=== PATIENT | male | born 1970 | race Caucasian/White ===

== ENCOUNTER 2018-07-11 18:06 | Emergency (ER) | payer BC, OTHER ==
--- NOTE | 2018-07-11 21:07 | RAD ---
RADIOGRAPH CHEST 1 VIEW: 07/11/18 HISTORY: 48-year-old male with productive cough, chest congestion, and fever. FINDINGS: There are no air space densities, pulmonary edema, pneumothorax, or cardiomegaly. The lateral costop hrenic angles are sharp. IMPRESSION: No acute cardiopulmonary findings. cliff [] POS: [facility]
== END 2018-07-11 21:22 | disposition home or self-care (01) ==
LOC: ERS 18:06
DX: J20.9 Acute bronchitis, unspecified (principal); F32.9 Major depressive disorder, single episode, unspecified; F17.210 Nicotine dependence, cigarettes, uncomplicated
CPT/HCPCS: 71045

== ENCOUNTER 2018-08-27 17:53 | Emergency (ER) | payer BC ==
--- NOTE | 2018-08-27 20:31 | RAD ---
CHEST TWO VIEWS: History: Chest pain Comparison: 07-11-18 FINDINGS: Lungs are clear. No pneumothorax or effusion. Cardiac silhouette and mediastinal contour is within no rmal limits. IMPRESSION: No acute intrathoracic abnormality. POS: [facility]
== END 2018-08-27 20:20 | disposition home or self-care (01) ==
LOC: ERS 17:53
DX: R05 Cough (principal); I10 Essential (primary) hypertension; F32.9 Major depressive disorder, single episode, unspecified; F17.210 Nicotine dependence, cigarettes, uncomplicated; Z87.01 Personal history of pneumonia (recurrent)
CPT/HCPCS: 71046

== ENCOUNTER 2019-07-23 18:02 | Emergency (ER) | payer BC, SELFPAY ==
--- NOTE | 2019-07-23 19:16 | RAD ---
PA AND LATERAL CHEST: 07/23/19 HISTORY: Flu-like symptoms for two weeks. COMPARISON: 08/27/18 study. Heart size and mediastinum are within normal limits. The lungs are clear of infiltrates. No significa nt bony findings. IMPRESSION: No active intrathoracic disease. POS: [facility]
== END 2019-07-23 19:40 | disposition home or self-care (01) ==
LOC: ERS 18:02
DX: R50.9 Fever, unspecified (principal); M79.10 Myalgia, unspecified site; R05 Cough; R11.2 Nausea with vomiting, unspecified; I10 Essential (primary) hypertension; F17.210 Nicotine dependence, cigarettes, uncomplicated
CPT/HCPCS: 71046

== ENCOUNTER 2019-07-30 09:10 | Emergency (ER) | payer SELFPAY | END 2019-07-30 09:55 | disposition home or self-care (01) | LOC: ERS 09:10 | DX: R11.2 Nausea with vomiting, unspecified (principal); R10.9 Unspecified abdominal pain; R19.7 Diarrhea, unspecified; I10 Essential (primary) hypertension; J18.9 Pneumonia, unspecified organism; F32.9 Major depressive disorder, single episode, unspecified; F17.210 Nicotine dependence, cigarettes, uncomplicated; Z79.899 Other long term (current) drug therapy | CPT/HCPCS: 99283 ==

== ENCOUNTER 2021-04-21 12:34 | Outpatient (CLI) | payer BC | END 2021-04-21 12:35 | disposition home or self-care (01) | LOC: BICMRI 12:34 | PROVIDERS: ATTEND Physician Assistant | DX: M54.41 Lumbago with sciatica, right side (principal); M47.817 Spondylosis without myelopathy or radiculopathy, lumbosacral region; M47.816 Spondylosis without myelopathy or radiculopathy, lumbar region | CPT/HCPCS: 72148 ==